=== PATIENT | male | born 1975 | race Caucasian/White ===

== ENCOUNTER 2016-05-26 11:43 | Emergency (ER) | payer OTHER ==
[~2016-05-26] VITALS: Ht 195.6 cm; Wt 106.6 kg
[2016-05-26] MEDS ORDERED: NORCO 5-325 TA1 EACH PO (14:42)
[2016-05-26 15:01] VITALS: BP 137/86
== END 2016-05-26 15:03 | disposition home or self-care (01) ==
LOC: ER 11:43
DX: S00.12XA Contusion of left eyelid and periocular area, initial encounter (principal); F12.10 Cannabis abuse, uncomplicated; W22.8XXA Striking against or struck by other objects, initial encounter; Y93.89 Activity, other specified; Y92.89 Other specified places as the place of occurrence of the external cause; Y99.8 Other external cause status